=== PATIENT | female | born 1945 | race Caucasian/White ===

== ENCOUNTER 2016-08-13 10:28 | Emergency (ER) | payer OTHER ==
[~2016-08-13] VITALS: Ht 162.6 cm; Wt 97.3 kg
[2016-08-13] MEDS ORDERED: DICLOFENAC SOD100 G1 TP (13:01)
[2016-08-13] MEDS ORDERED: TRAMADOL HCL50 MG PO (13:01)
[2016-08-13] MEDS ORDERED: FLONASE16 G1 BOTH NARES (13:01)
[2016-08-13 13:06] LABS: BILIRUBIN NEGATIVE; BLOOD NEGATIVE; COLOR YELLOW ((YELLOW)); GLUCOSE (STRIP) NEGATIVE; KETONES NEGATIVE; LEUKOCYTES NEGATIVE; NITRITE NEGATIVE; PROTEIN (STRIP) NEGATIVE; SPECIFIC GRAVITY 1.005 (1.000-1.030); UROBILINOGEN 0.2 MG/DL (0.2-1.0)
[2016-08-13 13:07] LABS: ADD MIUA? NO; UCUL ADDED? NO
[2016-08-13 13:07] LABS: HEMATOCRIT 42.2 % (36.0-46.0); MCH 29.3 PG (29.0-34.0); MCHC 31.8 G/DL (30.0-36.0); MCV 92.1 FL (83-99); MEAN PLAT.VOLUME 10.5 uM^3 (9.5-12.4); PLATELET COUNT 267 K/uL (156-360); RBC DIS.WIDTH-CV 14.5 % (11.8-14.6); RBC DIS.WIDTH-SD 48.8 % (39-53); RED BLOOD COUNT 4.58 M/uL (3.80-5.20)
[2016-08-13 13:08] LABS: CHLORIDE 104 mEq/L (99-109); POTASSIUM 4.9 mEq/L (3.7-5.4); SODIUM 142 mEq/L (136-147)
[2016-08-13 13:09] LABS: GLUCOSE 113 mg/dL (70-99)
[2016-08-13 13:11] LABS: ANION GAP 10 MEQ/L (2-14)
[2016-08-13 13:13] LABS: GFR ESTIMATE (CALCULATED) > 59 mL/min/
[2016-08-13 13:14] LABS: UREA NITROGEN (BUN) 11 mg/dL (9-23)
[2016-08-13 13:26] LABS: TOTAL BILIRUBIN 0.3 mg/dL (0.0-1.0)
[2016-08-13 13:28] LABS: ALKALINE PHOSPHATASE 64 IU/L (3-129)
[2016-08-13 13:30] LABS: DIRECT BILIRUBIN 0.1 mg/dL (0.0-0.3)
[2016-08-13 13:31] LABS: LIPASE 24 U/L (1.0-51.0)
[2016-08-13 14:58] VITALS: BP 162/78
== END 2016-08-13 14:59 | disposition home or self-care (01) ==
LOC: EME 10:28
DX: R10.30 Lower abdominal pain, unspecified (principal); K59.00 Constipation, unspecified; I10 Essential (primary) hypertension
CPT/HCPCS: 74177; 80048; 80076; 81003; 83690; 85027; 99281; 99284; J7030

== ENCOUNTER 2016-08-16 10:25 | Emergency (ER) | payer OTHER ==
[~2016-08-16] VITALS: Ht 165.1 cm; Wt 96.8 kg
[~2016-08-16 10:25] MED LIST: DICLOFENAC SOD100 G1 TP; FLONASE16 G1 BOTH NARES; TRAMADOL HCL50 MG PO
[2016-08-16 11:38] LABS: HEMATOCRIT 42.5 % (36.0-46.0); MCH 29.8 PG (29.0-34.0); MCHC 32.5 G/DL (30.0-36.0); MCV 91.8 FL (83-99); MEAN PLAT.VOLUME 10.5 uM^3 (9.5-12.4); PLATELET COUNT 300 K/uL (156-360); RBC DIS.WIDTH-CV 14.6 % (11.8-14.6); RBC DIS.WIDTH-SD 48.9 % (39-53); RED BLOOD COUNT 4.63 M/uL (3.80-5.20); WHITE BLOOD COUNT 7.8 K/uL (4.1-10.2)
[2016-08-16 11:47] LABS: CHLORIDE 104 mEq/L (99-109); POTASSIUM 4.1 mEq/L (3.7-5.4); SODIUM 139 mEq/L (136-147)
[2016-08-16 11:51] LABS: ANION GAP 11 MEQ/L (2-14)
[2016-08-16 11:53] LABS: ALKALINE PHOSPHATASE 68 IU/L (3-129); GFR ESTIMATE (CALCULATED) > 59 mL/min/; GLUCOSE 83 mg/dL (70-99); TOTAL BILIRUBIN 0.5 mg/dL (0.0-1.0)
[2016-08-16 11:54] LABS: UREA NITROGEN (BUN) 8 mg/dL (9-23)
[2016-08-16 12:03] LABS: ADD MIUA? YES; BILIRUBIN NEGATIVE; BLOOD NEGATIVE; COLOR YELLOW ((YELLOW)); GLUCOSE (STRIP) NEGATIVE; KETONES NEGATIVE; LEUKOCYTES TRACE; NITRITE NEGATIVE; PROTEIN (STRIP) NEGATIVE; SPECIFIC GRAVITY 1.003 (1.000-1.030); UROBILINOGEN 0.2 MG/DL (0.2-1.0)
[2016-08-16 12:06] LABS: BACTERIA NONE SEEN /HPF; EPITHELIAL CELLS RARE /HPF; MUCUS NONE SEEN /LPF; RED BLOOD CELLS 0-5 /HPF (0-5); UCUL ADDED? NO; WHITE BLOOD CELLS 0-5 /HPF (0-5)
[2016-08-16] MEDS ORDERED: ULTRAM50 MG PO (13:17)
[2016-08-16 13:58] VITALS: BP 163/77
== END 2016-08-16 13:59 | disposition home or self-care (01) ==
LOC: EME 10:25
DX: N81.9 Female genital prolapse, unspecified (principal); R10.30 Lower abdominal pain, unspecified; I10 Essential (primary) hypertension
CPT/HCPCS: 80053; 81003; 85027; 87077; 87086; 87186; 99281; 99284

== ENCOUNTER → 2017-05-31 | Outpatient (CLI) | payer OTHER ==
[~2017-05-31] MED LIST changes: +ULTRAM50 MG PO
== END | disposition home or self-care (01) ==
DX: M17.12 Unilateral primary osteoarthritis, left knee (principal); R26.2 Difficulty in walking, not elsewhere classified; M25.562 Pain in left knee; M25.662 Stiffness of left knee, not elsewhere classified; M62.81 Muscle weakness (generalized); Z74.1 Need for assistance with personal care
CPT/HCPCS: 97150 GO; 97165 GO; G8987 GO; G8988 GO; G8989 GO

== ENCOUNTER 2017-06-12 22:02 | Inpatient (IN) | payer OTHER ==
[~2017-06-12] VITALS: Ht 165.1 cm; Wt 95.8 kg
[~2017-06-12 22:02] MED LIST changes: +FLEXERIL5 MG PO; +NORVASC5 MG PO; +POLY-VITAMIN1 EACH PO; +TYLENOL EXTRA500 MG PO
[2017-06-13 07:40] VITALS: BP 151/69
[2017-06-13 11:49] LABS: HEMATOCRIT 36.7 % (36.0-46.0); HEMOGLOBIN 11.9 G/DL (11.9-15.5); MCHC 32.4 G/DL (30.0-36.0); MCV 89.5 FL (83-99); PLATELET COUNT 263 K/uL (156-360); RBC DIS.WIDTH-CV 14.3 % (11.8-14.6); RBC DIS.WIDTH-SD 46.9 % (39-53); WHITE BLOOD COUNT 6.1 K/uL (4.1-10.2)
[2017-06-13 13:30] VITALS: BP 147/72
[2017-06-13 15:57] VITALS: BP 120/58
[2017-06-13 20:20] VITALS: BP 122/60
[2017-06-14 00:20] VITALS: BP 130/60
[2017-06-14 04:03] VITALS: BP 131/60
[2017-06-14 05:03] LABS: HEMOGLOBIN 10.1 G/DL (11.9-15.5)
[2017-06-14 05:20] LABS: CHLORIDE 105 mEq/L (99-109)
[2017-06-14 05:21] LABS: SODIUM 137 mEq/L (136-147)
[2017-06-14 05:22] LABS: GLUCOSE 115 mg/dL (70-99)
[2017-06-14 05:26] LABS: CREATININE 0.7 mg/dL (0.6-1.3); GFR ESTIMATE (CALCULATED) > 59 mL/min/
[2017-06-14 05:27] LABS: UREA NITROGEN (BUN) 12 mg/dL (9-23)
[2017-06-14 08:17] VITALS: BP 178/79
[2017-06-14 11:42] VITALS: BP 151/69
[2017-06-14 16:02] VITALS: BP 141/65
[2017-06-14 20:11] VITALS: BP 143/66
[2017-06-15 00:07] VITALS: BP 150/69
[2017-06-15 04:02] VITALS: BP 141/63
[2017-06-15 05:48] LABS: HEMATOCRIT 29.6 % (36.0-46.0); HEMOGLOBIN 9.8 G/DL (11.9-15.5); MCV 89.4 FL (83-99)
[2017-06-15] MEDS ORDERED: SENNA PLUS TAB1 EACH PO (07:50)
[2017-06-15] MEDS ORDERED: ENDOCET 5-3251 EACH PO (07:51)
[2017-06-15] MEDS ORDERED: LOVENOX40 MG/0.4 SC (07:51)
[2017-06-15 08:00] VITALS: BP 136/63
[2017-06-15 11:45] VITALS: BP 120/58
== END 2017-06-15 14:44 | DRG 470 ==
LOC: ENRESERV 22:02 → 2SOUTH 06-13 06:43 → 3WEST 06-13 13:21 → 2SOUTH 06-13 15:49 → 3WEST 06-15 14:44
PROVIDERS: Orthopaedic Surgery
PROC: 0SRD0J9 Replacement of Left Knee Joint with Synthetic Substitute, Cemented, Open Approach (ICD-10-PCS; principal; 2017-06-13)
DX: M17.12 Unilateral primary osteoarthritis, left knee (principal); I10 Essential (primary) hypertension; H26.9 Unspecified cataract; K59.09 Other constipation; R20.0 Anesthesia of skin; R20.2 Paresthesia of skin; M54.2 Cervicalgia; R60.0 Localized edema; I83.90 Asymptomatic varicose veins of unspecified lower extremity; Z85.820 Personal history of malignant melanoma of skin; Z98.84 Bariatric surgery status; Z82.49 Family history of ischemic heart disease and other diseases of the circulatory system; Z83.3 Family history of diabetes mellitus; Z87.442 Personal history of urinary calculi
CPT/HCPCS: 73560; 80048; 85014; 85018; 85027; 93005; 97530 GP; C1713; J1100; J1170; J1650; J1885; J2405; J2795; J3010; J7050